=== PATIENT | male | born 1995 | race Caucasian/White ===

== ENCOUNTER 2020-12-01 11:56 | Emergency (ER) | payer OTHER, SELFPAY ==
[2020-12-01 12:16] VITALS: BP 150/83; PULSE 79; RESP 18; TEMP 36.4; O2SAT 100
--- NOTE | 2020-12-01 12:16 | ED.SKABFB ---
HPI - Skin/Abscess/Foreign Bdy General Chief complaint: Skin/Abscess/Foreign Body Stated complaint: Upper body rash Time Seen by Provider: 12/01/20 12:17 Source: patient Mode of arrival: ambulatory Limitations: no limitations History of Present Illness HPI narrative: Chris Schrader is a 25 yo male with no PMHwho comes to express care with a rash on side for 2 weeks, 2 days on back. not pruritic, patient is upset that rash is spreading Related Data Allergies Allergy/AdvReac Type Severity Reaction Status Date / Time No Known Allergies Allergy Verified 07/09/19 11:27 Review of Systems Review of Systems: Narrative: CONSTITUTIONAL: Denies fever, chills, sweats. EYES: Denies visual changes, redness, discharge. ENT: Denies rhinorrhea, congestion, sore throat, otalgia. CARDIOVASCULAR: Denies chest pain, palpitations, edema. RESPIRATORY: Denies dyspnea, wheezing, cough GASTROINTESTINAL: Denies abdominal pain, nausea, vomiting, diarrhea. GENITOURINARY: Denies dysuria, hematuria, abnormal discharge SKIN: Complains of rash on torso and back in front of arms NEUROLOGIC: Denies numbness, or focal weakness. PSYCHIATRIC: Denies anxiety or depression. PMFSH Past Medical History Medical History No acute medical problems Family History Family History Grandparent Heart disease Social History Social History (Updated 12/01/20 @ 12:39 by Luci Orozco CNP) Smoking status: Never smoker Alcohol intake: current Gender identity (if verbalized by the patient): Male Comments At time of signature, I agree with nursing past medical, surgical, social and family history. There is no relevant family history pertinent to the presenting complaint. This patient referred back to primary care physician Exam Narrative: Exam Narrative: GENERAL: This is a well-nourished, well-developed patient, in mild distress. HEAD: normocephalic, atraumatic. EYES: Sclera clear/white. Vision is grossly intact. EARS: External ears normal, . Hearing grossly intact. NOSE: External nose normal without nasal discharge, nares without redness, no rhinorrhea. THROAT: Mucous membranes moist, NECK: Neck supple, non-tender CARDIOVASCULAR: Regular rate and rhythm without murmurs, gallops, or rubs. RESPIRATORY: Clear to auscultation. Breath sounds equal bilaterally. No wheezes, rales, or rhonchi. GASTROINTESTINAL: Abdomen soft, non-tender, SKIN: warm, intact with no suspicious lesions , circular rash under right axilla uand torso, front and back NEURO: awake, alert, and oriented to person, place and time. There were no obvious focal neurologic abnormalities. Steady gait EXTREMITIES: Normal range of motion. BACK: Nontender without deformity Course Course Emergency Course: Patient comes with evolving rash started 2 weeks ago on his right flank and leg swelling spread to the front and back of his torso General very anxious about the way it works and scheduled for physical next week given Diflucan in 800 mg once started on Chlortrimazole and betamethasone ointment Vital Signs Vital signs: Vital Signs Temperature 97.6 F 12/01/20 12:16 Pulse Rate 79 12/01/20 12:16 Respiratory Rate 18 12/01/20 12:16 Blood Pressure 150/83 H 12/01/20 12:16 Pulse Oximetry 100 12/01/20 12:16 Temperature 97.6 F 12/01/20 12:16 Pulse Rate 79 12/01/20 12:16 Respiratory Rate 18 12/01/20 12:16 Blood Pressure 150/83 H 12/01/20 12:16 Pulse Oximetry 100 12/01/20 12:16 MDM - Skin/Abscess/Foreign Bdy Differential Diagnosis Differential diagnosis: Likely abscess of skin or subcutaneous tissue, urticaria, cellulitis, eczema, impetigo and other Critical Care Time Critical Care Time Critical Care Time: No Discharge Plan Discharge Clinical Impression: Ringworm Patient Disposition: Home, Self-Care Condition: Stable Instructions:
== END 2020-12-01 12:43 | disposition home or self-care (01) ==
PROVIDERS: Emergency Provider Nurse Practitioner
DX: B35.4 Tinea corporis (principal)
CPT/HCPCS: 99213; G0463